=== PATIENT | male | born 1970 | race Caucasian/White ===

== ENCOUNTER 2016-05-25 01:03 | Emergency (ER) | payer SELFPAY ==
[~2016-05-25] VITALS: Ht 160 cm; Wt 56.0 kg
[~2016-05-25 01:03] MED LIST: IBUP-232 PO
[2016-05-25 01:06] VITALS: BP 144/79; PULSE 86; RESP 15; TEMP 97.9; O2SAT 98
== END 2016-05-25 02:14 | disposition left against medical advice (07) ==
LOC: NED 01:03
DX: R55 Syncope and collapse (principal)
CPT/HCPCS: 99281